=== PATIENT | male | born 1945 | race Caucasian/White ===

== ENCOUNTER 2025-05-23 23:41 | Inpatient (IN) | payer OTHER ==
[~2025-05-23] VITALS: Ht 172.7 cm; Wt 65.8 kg
[2025-05-23] MEDS ORDERED: ACETAMINOPHEN 650 MG/SUPP.RECT RC ONE (23:57)
[2025-05-24] VITALS (26 sets, daily range): BP systolic 102–137; BP diastolic 52–92; TEMP 98.2–98.6; O2SAT 91–100
[2025-05-24] MEDS ORDERED: IV NS 0.9% 1,000 ML BAG IV ONE
[2025-05-24 00:14] LABS: PLATELET COUNT (AUTO) 352 K/uL (150-450); RED BLOOD CELL COUNT(AUTO) 2.85 MIL/uL (4.5-6.0); RED CELL DISTRIBUTION WIDTH 17.5 % (11.5-15.0)
[2025-05-24 00:17] LABS: WHITE BLOOD COUNT (AUTO) 35.8 K/uL (4.3-11.0)
[2025-05-24] MEDS: ACETAMINOPHEN 650 MG/SUPP.RECT RC ONE (00:21)
[2025-05-24] MEDS: IV NS 0.9% 500 ML BAG IV ONE (00:21)
[2025-05-24 00:25] LABS: CALCIUM, SERUM 8.2 mg/dL (8.5-10.1); CREATININE 0.8 mg/dL (0.6-1.3); SODIUM SERUM 140 mmol/L (136-145); UREA NITROGEN, BLOOD 26 mg/dL (7-18)
[2025-05-24 00:27] LABS: INR 1.27 (0.91-1.10)
[2025-05-24 00:34] LABS: LACTIC ACID 2.8 mmol/L (0.4-2.0)
[2025-05-24 00:39] LABS: ASPARTATE AMINOTRANSFERASE 39 U/L (15-37); TOTAL PROTEIN, SERUM 7.0 g/dL (6.4-8.2)
[2025-05-24 00:44] LABS: APPEARANCE,URINE CLOUDY (CLEAR); BLOOD, URINE 2+ Ery/uL (NEGATIVE); LEUKOCYTE ESTERASE ,URINE 3+ (NEGATIVE); NITRITE, URINE POSITIVE (NEGATIVE); UGLUCOSE NEGATIVE (NEGATIVE)
[2025-05-24] MEDS ORDERED: CEFTRIAXONE 1GM BAG (ER ONLY) 50 ML IV ONE (01:00)
[2025-05-24] MEDS: CEFTRIAXONE 1GM BAG (ER ONLY) 1 GM/50 ML PIGGYBACK IV ONE (01:01)
[2025-05-24 01:05] LABS: ADD URINE CULTURE YES; SQUAMOUS EPITHELIAL CELL,UR None Seen /HPF (None Seen)
[2025-05-24 01:09] LABS: ABG BASE EXCESS 1.5 mmol/L (-2.0-3.0); ABG OXYGEN SATURATION 99.3 % (94.0-98.0); ABG PCO2 36.2 mmHg (35.0-48.0); ABG PH 7.461 (7.350-7.450); ABG PO2 286.4 mmHg (83.0-108.0); ABG TOTAL HEMOGLOBIN 9.3 G/dL (13.5-17.5); SET RATE, BG 18.0; SITE, ABG RIGHT RADIAL
[2025-05-24] MEDS: AZITHROMYCIN 500 MG in IV D5W 250 ML IV SCH (01:30)
[2025-05-24] MEDS ORDERED: AZITHROMYCIN 500 MG VIAL ONE (01:47)
[2025-05-24] MEDS ORDERED: ONDANSETRON HCL/PF 4 MG/2 ML VIAL IVP PRN (02:00)
[2025-05-24] MEDS ORDERED: MAG HYDROX/AL HYDROX/SIMETH 30 ML UDC PO PRN (02:00)
[2025-05-24] MEDS ORDERED: DOSING PER PHARMACY-VANCOMYCIN IV XX PRN (02:00)
[2025-05-24] MEDS ORDERED: ACETAMINOPHEN 325 MG TABLET PO PRN (02:00)
[2025-05-24] MEDS ORDERED: Z GUARD REMEDY 4 OZ OINT TP PRN (02:00)
[2025-05-24] MEDS ORDERED: MAGNESIUM HYDROXIDE 30 ML UDC PO PRN (02:00)
[2025-05-24] MEDS ORDERED: CEFEPIME 1 GM VIAL ONE (03:23)
[2025-05-24 03:45] LABS: BAND % (MANUAL) 1 % (0.0-5.0); LYMPHOCYTES % (MANUAL) 2 % (16-48); MONOCYTES % (MANUAL) 6 % (0-11.0); NEUTROPHILS % (MANUAL) 91 (42-76); PLATELET ESTIMATE ADEQUATE
[2025-05-24] MEDS: CEFEPIME 1 GM in IV D5W 50 ML IV SCH (04:04)
[2025-05-24] MEDS: IV NS 0.9% 1,000 ML IV PRN (04:05)
[2025-05-24] MEDS: VANCOMYCIN 1 GM /D5W 250 ML PB IV ONE (05:16)
[2025-05-24 06:06] LABS: ABG BASE EXCESS 1.1 mmol/L (-2.0-3.0); ABG OXYGEN SATURATION 98.6 % (94.0-98.0); ABG PCO2 40.8 mmHg (35.0-48.0); ABG PH 7.417 (7.350-7.450); ABG PO2 141.3 mmHg (83.0-108.0); ABG TOTAL HEMOGLOBIN 8.8 G/dL (13.5-17.5); SET RATE, BG 18.0; SITE, ABG RIGHT RADIAL
[2025-05-24] MEDS: VANCOMYCIN 1.5 GM in IV D5W 500 ML IV ONE (06:52)
[2025-05-24] MEDS: PANTOPRAZOLE 40 MG VIAL IV SCH (08:17)
[2025-05-24] MEDS: dexaMETHasone SOD PHOSPHATE 10 MG/ML VIAL IV SCH (08:18)
[2025-05-24] MEDS: ENOXAPARIN SODIUM 40 MG/0.4 ML DISP.SYRIN SQ SCH (08:18)
[2025-05-24] MEDS: DAKINS QUARTER STRENGTH (0.125%) 480 ML BOTTLE TOP SCH (08:19)
[2025-05-24] MEDS: CEFEPIME 2 GM in IV D5W 100 ML IV SCH (11:34)
[2025-05-24] MEDS: VANCOMYCIN 1 GM in IV D5W 250ml IV SCH (15:49)
[2025-05-25] VITALS (25 sets, daily range): BP systolic 118–156; BP diastolic 40–86; TEMP 97–98.1; O2SAT 87–100
[2025-05-25] MEDS: JEVITY 1.2 CAL 1,000 ML BOTTLE GT PRN ×2 (04:51→10:57)
[2025-05-25 05:09] LABS: ASPARTATE AMINOTRANSFERASE 28.0 U/L (15-37); CALCIUM, SERUM 9.2 mg/dL (8.5-10.1); CREATININE 0.5 mg/dL (0.6-1.3); PHOSPHORUS 2.7 mg/dL (2.5-4.9); SODIUM SERUM 140.0 mmol/L (136-145); TOTAL PROTEIN, SERUM 7.2 g/dL (6.4-8.2); UREA NITROGEN, BLOOD 22.0 mg/dL (7-18)
[2025-05-25 05:11] LABS: PLATELET COUNT (AUTO) 349 K/uL (150-450); RED BLOOD CELL COUNT(AUTO) 2.83 MIL/uL (4.5-6.0); RED CELL DISTRIBUTION WIDTH 17.2 % (11.5-15.0)
[2025-05-25 05:18] LABS: WHITE BLOOD COUNT (AUTO) 40.8 K/uL (4.3-11.0)
[2025-05-25 05:51] LABS: LYMPHOCYTES % (MANUAL) 3 % (16-48); MONOCYTES % (MANUAL) 3 % (0-11.0); NEUTROPHILS % (MANUAL) 94 (42-76); PLATELET ESTIMATE ADEQUATE
[2025-05-25] MEDS: dexaMETHasone SOD PHOSPHATE 10 MG/ML VIAL IV SCH (08:41)
[2025-05-26] VITALS (24 sets, daily range): BP systolic 133–166; BP diastolic 72–90; TEMP 97.7–98.7; O2SAT 99–100
[2025-05-26 05:04] LABS: PLATELET COUNT (AUTO) 338 K/uL (150-450); RED BLOOD CELL COUNT(AUTO) 2.83 MIL/uL (4.5-6.0); RED CELL DISTRIBUTION WIDTH 17.6 % (11.5-15.0); WHITE BLOOD COUNT (AUTO) 27.5 K/uL (4.3-11.0)
[2025-05-26 05:21] LABS: CALCIUM, SERUM 9.0 mg/dL (8.5-10.1); CREATININE 0.6 mg/dL (0.6-1.3); SODIUM SERUM 142.0 mmol/L (136-145); UREA NITROGEN, BLOOD 23.0 mg/dL (7-18)
[2025-05-26] MEDS: PANTOPRAZOLE 40 MG/PACK PACK GT SCH (09:08)
[2025-05-26] MEDS: VANCOMYCIN HCL 1.25 GM in IV D5W 250 ML IV SCH (16:03)
[2025-05-27] VITALS (23 sets, daily range): BP systolic 137–170; BP diastolic 66–91; TEMP 97.9–98.3; O2SAT 93–100
[2025-05-27 05:49] LABS: CALCIUM, SERUM 8.6 mg/dL (8.5-10.1); CREATININE 0.5 mg/dL (0.6-1.3); SODIUM SERUM 141.0 mmol/L (136-145); UREA NITROGEN, BLOOD 18.0 mg/dL (7-18)
[2025-05-27 09:06] LABS: ABG BASE EXCESS 4.5 mmol/L (-2.0-3.0); ABG OXYGEN SATURATION 95.9 % (94.0-98.0); ABG PCO2 39.9 mmHg (35.0-48.0); ABG PH 7.472 (7.350-7.450); ABG PO2 83.0 mmHg (83.0-108.0); ABG TOTAL HEMOGLOBIN 9.0 G/dL (13.5-17.5); FRACTIONATED INSPIRED OXYGEN 80.0 %; SET RATE, BG 18.0; SITE, ABG RIGHT RADIAL
[2025-05-27 09:39] LABS: PLATELET COUNT (AUTO) 319 K/uL (150-450); RED BLOOD CELL COUNT(AUTO) 2.76 MIL/uL (4.5-6.0); RED CELL DISTRIBUTION WIDTH 17.4 % (11.5-15.0); WHITE BLOOD COUNT (AUTO) 22.9 K/uL (4.3-11.0)
[2025-05-28] VITALS (21 sets, daily range): BP systolic 128–162; BP diastolic 66–89; TEMP 98.2–98.9; O2SAT 90–100
[2025-05-28 05:29] LABS: PLATELET COUNT (AUTO) 303 K/uL (150-450); RED BLOOD CELL COUNT(AUTO) 2.84 MIL/uL (4.5-6.0); RED CELL DISTRIBUTION WIDTH 16.8 % (11.5-15.0); WHITE BLOOD COUNT (AUTO) 24.0 K/uL (4.3-11.0)
[2025-05-28 05:37] LABS: CALCIUM, SERUM 8.6 mg/dL (8.5-10.1); CREATININE 0.5 mg/dL (0.6-1.3); PHOSPHORUS 2.9 mg/dL (2.5-4.9); SODIUM SERUM 136.0 mmol/L (136-145); UREA NITROGEN, BLOOD 14.0 mg/dL (7-18)
[2025-05-28 10:15] LABS: LYMPHOCYTES % (MANUAL) 9 % (16-48); MONOCYTES % (MANUAL) 5 % (0-11.0); NEUTROPHILS % (MANUAL) 86 (42-76); PLATELET ESTIMATE ADEQUATE
[2025-05-29] VITALS: BP 135/65; TEMP 97.7; O2SAT 94
[2025-05-29 04:00] VITALS: BP 160/78; TEMP 97.7; O2SAT 96
[2025-05-29 08:00] VITALS: BP 146/77; TEMP 97.1; O2SAT 96
[2025-05-29 08:18] LABS: PLATELET COUNT (AUTO) 376 K/uL (150-450); RED BLOOD CELL COUNT(AUTO) 3.12 MIL/uL (4.5-6.0); RED CELL DISTRIBUTION WIDTH 17.0 % (11.5-15.0); WHITE BLOOD COUNT (AUTO) 22.8 K/uL (4.3-11.0)
[2025-05-29 08:26] LABS: CALCIUM, SERUM 8.6 mg/dL (8.5-10.1); CREATININE 0.4 mg/dL (0.6-1.3); SODIUM SERUM 140.0 mmol/L (136-145); UREA NITROGEN, BLOOD 16.0 mg/dL (7-18)
[2025-05-29] MEDS: PROSOURCE / PROSTAT (PYXIS) 30 ML UDC GT SCH (10:16)
[2025-05-29 10:24] LABS: LYMPHOCYTES % (MANUAL) 11 % (16-48); MONOCYTES % (MANUAL) 3 % (0-11.0); NEUTROPHILS % (MANUAL) 86 (42-76); PLATELET ESTIMATE ADEQUATE
[2025-05-29 12:00] VITALS: BP 155/79; TEMP 97.6; O2SAT 96
[2025-05-29] MEDS: VANCOMYCIN 1 GM in IV D5W 250 ML IV SCH (15:36)
[2025-05-29 16:00] VITALS: BP 166/81; TEMP 97.1; O2SAT 99
[2025-05-29] MEDS: ACETAMINOPHEN 650 MG/20.3 ML UDC PO PRN (16:25)
[2025-05-29 20:00] VITALS: BP 145/75; TEMP 97.5; O2SAT 90
[2025-05-30] VITALS: BP 140/116; TEMP 97.7; O2SAT 95
[2025-05-30 04:00] VITALS: BP 134/75; TEMP 97.9; O2SAT 95
[2025-05-30 07:27] LABS: PLATELET COUNT (AUTO) 402 K/uL (150-450); RED BLOOD CELL COUNT(AUTO) 3.26 MIL/uL (4.5-6.0); RED CELL DISTRIBUTION WIDTH 16.8 % (11.5-15.0)
[2025-05-30 07:31] LABS: CALCIUM, SERUM 8.9 mg/dL (8.5-10.1); CREATININE 0.5 mg/dL (0.6-1.3); SODIUM SERUM 136.0 mmol/L (136-145); UREA NITROGEN, BLOOD 16.0 mg/dL (7-18)
[2025-05-30 08:00] VITALS: BP 128/60; TEMP 97.9; O2SAT 100
[2025-05-30 08:04] LABS: WHITE BLOOD COUNT (AUTO) 31.0 K/uL (4.3-11.0)
[2025-05-30 08:43] LABS: LYMPHOCYTES % (MANUAL) 7 % (16-48); MONOCYTES % (MANUAL) 3 % (0-11.0); MYELOCYTES % 2 % (0-0); NEUTROPHILS % (MANUAL) 88 (42-76); PLATELET ESTIMATE ADEQUATE
[2025-05-30 16:00] VITALS: BP 136/83; TEMP 98; O2SAT 95
[2025-05-30 20:00] VITALS: BP 148/69; TEMP 98.2; O2SAT 99
[2025-05-31 01:30] VITALS: O2SAT 96
[2025-05-31 04:00] VITALS: BP 129/71; TEMP 98.5; O2SAT 95
[2025-05-31 08:00] VITALS: BP 106/54; TEMP 98.2; O2SAT 95
[2025-05-31 09:12] LABS: PLATELET COUNT (AUTO) 401 K/uL (150-450); RED BLOOD CELL COUNT(AUTO) 3.17 MIL/uL (4.5-6.0); RED CELL DISTRIBUTION WIDTH 17.4 % (11.5-15.0); WHITE BLOOD COUNT (AUTO) 25.3 K/uL (4.3-11.0)
[2025-05-31] MEDS: dexaMETHasone SOD PHOSPHATE 10 MG/ML VIAL IV SCH (09:22)
[2025-05-31 09:23] LABS: CALCIUM, SERUM 8.6 mg/dL (8.5-10.1); CREATININE 0.5 mg/dL (0.6-1.3); SODIUM SERUM 137.0 mmol/L (136-145); UREA NITROGEN, BLOOD 18.0 mg/dL (7-18)
[2025-05-31 16:00] VITALS: BP 100/50; TEMP 98.4; O2SAT 93
[2025-05-31 20:00] VITALS: BP 104/46; TEMP 97.8; O2SAT 93
[2025-05-31 23:20] VITALS: O2SAT 94
[2025-06-01 01:58] VITALS: O2SAT 96
[2025-06-01 04:00] VITALS: BP 110/60; TEMP 97.9; O2SAT 95
[2025-06-01 07:58] LABS: PLATELET COUNT (AUTO) 158 K/uL (150-450); RED BLOOD CELL COUNT(AUTO) 4.80 MIL/uL (4.5-6.0); RED CELL DISTRIBUTION WIDTH 16.1 % (11.5-15.0); WHITE BLOOD COUNT (AUTO) 8.4 K/uL (4.3-11.0)
[2025-06-01 08:00] VITALS: BP 162/82; TEMP 98.1; O2SAT 95
[2025-06-01 08:06] LABS: CALCIUM, SERUM 9.0 mg/dL (8.5-10.1); CREATININE 0.8 mg/dL (0.6-1.3); SODIUM SERUM 139.0 mmol/L (136-145); UREA NITROGEN, BLOOD 17.0 mg/dL (7-18)
[2025-06-01 16:00] VITALS: BP 131/73; TEMP 97.9; O2SAT 95
[2025-06-01 20:00] VITALS: BP 115/74; TEMP 97.8; O2SAT 93
[2025-06-02] VITALS (10 sets, daily range): BP systolic 88–125; BP diastolic 56–82; TEMP 97.6–101.5; O2SAT 70–100
[2025-06-02 08:36] LABS: CALCIUM, SERUM 8.8 mg/dL (8.5-10.1); CREATININE 0.7 mg/dL (0.6-1.3); SODIUM SERUM 135.0 mmol/L (136-145); UREA NITROGEN, BLOOD 24.0 mg/dL (7-18)
[2025-06-02 08:58] LABS: PLATELET COUNT (AUTO) 430 K/uL (150-450); RED BLOOD CELL COUNT(AUTO) 3.51 MIL/uL (4.5-6.0); RED CELL DISTRIBUTION WIDTH 18.6 % (11.5-15.0)
[2025-06-02 09:42] LABS: WHITE BLOOD COUNT (AUTO) 37.9 K/uL (4.3-11.0)
[2025-06-02 10:37] LABS: ABG BASE EXCESS 4.1 mmol/L (-2.0-3.0); ABG OXYGEN SATURATION 88.3 % (94.0-98.0); ABG PCO2 37.0 mmHg (35.0-48.0); ABG PH 7.490 (7.350-7.450); ABG PO2 55.6 mmHg (83.0-108.0); ABG TOTAL HEMOGLOBIN 10.6 G/dL (13.5-17.5); FLOW, BLOOD GAS 15.00 L/min (0.00-30.00); FRACTIONATED INSPIRED OXYGEN 100.0 %
[2025-06-02 11:22] LABS: LYMPHOCYTES % (MANUAL) 1 % (16-48); MONOCYTES % (MANUAL) 3 % (0-11.0); MYELOCYTES % 5 % (0-0); NEUTROPHILS % (MANUAL) 91 (42-76); PLATELET ESTIMATE ADEQUATE
[2025-06-02] MEDS ORDERED: MEROPENEM 500 MG in IV NS 0.9% 50 ML IV SCH (13:00)
[2025-06-02] MEDS ORDERED: DOSING PER PHARMACY-VANCOMYCIN IV XX PRN (19:00)
[2025-06-02] MEDS: VANCOMYCIN 1 GM in IV D5W 250ml IV ONE (20:18)
[2025-06-02] MEDS: MEROPENEM 500 MG in IV NS 0.9% 50 ML IV SCH (21:26)
[2025-06-03] VITALS (11 sets, daily range): BP systolic 112–146; BP diastolic 60–80; TEMP 97.5–99; O2SAT 98–100
[2025-06-03] MEDS: VANCOMYCIN 1 GM in IV D5W 250ml IV SCH (08:59)
[2025-06-03 10:06] LABS: PLATELET COUNT (AUTO) 390 K/uL (150-450); RED BLOOD CELL COUNT(AUTO) 3.33 MIL/uL (4.5-6.0); RED CELL DISTRIBUTION WIDTH 17.8 % (11.5-15.0)
[2025-06-03 10:08] LABS: CALCIUM, SERUM 9.0 mg/dL (8.5-10.1); CREATININE 0.5 mg/dL (0.6-1.3); SODIUM SERUM 135.0 mmol/L (136-145); UREA NITROGEN, BLOOD 28.0 mg/dL (7-18)
[2025-06-03 10:24] LABS: WHITE BLOOD COUNT (AUTO) 32.5 K/uL (4.3-11.0)
[2025-06-03 10:47] LABS: LYMPHOCYTES % (MANUAL) 4 % (16-48); MONOCYTES % (MANUAL) 5 % (0-11.0); NEUTROPHILS % (MANUAL) 91 (42-76); PLATELET ESTIMATE ADEQUATE
[2025-06-03] MEDS: MEROPENEM 500 MG in IV NS 0.9% 50 ML IV SCH (12:00)
[2025-06-03] MEDS ORDERED: VANCOMYCIN 1 GM in IV D5W 250ml IV SCH (23:00)
[2025-06-04] VITALS (12 sets, daily range): BP systolic 113–153; BP diastolic 59–96; TEMP 97.2–97.8; O2SAT 97–100
[2025-06-04 07:48] LABS: PLATELET COUNT (AUTO) 361 K/uL (150-450); RED BLOOD CELL COUNT(AUTO) 3.36 MIL/uL (4.5-6.0); RED CELL DISTRIBUTION WIDTH 17.8 % (11.5-15.0); WHITE BLOOD COUNT (AUTO) 21.7 K/uL (4.3-11.0)
[2025-06-04 08:01] LABS: CALCIUM, SERUM 9.3 mg/dL (8.5-10.1); CREATININE 0.6 mg/dL (0.6-1.3); SODIUM SERUM 137.0 mmol/L (136-145); UREA NITROGEN, BLOOD 22.0 mg/dL (7-18)
[2025-06-04] MEDS: SODIUM POLYSTYRENE SULFONATE 15 G/60 ML BOTTLE PO ONE (11:22)
[2025-06-05] VITALS (8 sets, daily range): BP systolic 102–153; BP diastolic 58–90; TEMP 97.5–98.1; O2SAT 100
[2025-06-05 07:42] LABS: PLATELET COUNT (AUTO) 361 K/uL (150-450); RED BLOOD CELL COUNT(AUTO) 3.38 MIL/uL (4.5-6.0); RED CELL DISTRIBUTION WIDTH 17.3 % (11.5-15.0); WHITE BLOOD COUNT (AUTO) 22.7 K/uL (4.3-11.0)
[2025-06-05 07:51] LABS: CALCIUM, SERUM 9.1 mg/dL (8.5-10.1); CREATININE 0.5 mg/dL (0.6-1.3); SODIUM SERUM 138.0 mmol/L (136-145); UREA NITROGEN, BLOOD 20.0 mg/dL (7-18)
[2025-06-06] VITALS (7 sets, daily range): BP systolic 90–117; BP diastolic 52–60; TEMP 97.5–99.2; O2SAT 95–100
[2025-06-06 07:27] LABS: PLATELET COUNT (AUTO) 363 K/uL (150-450); RED BLOOD CELL COUNT(AUTO) 3.39 MIL/uL (4.5-6.0); RED CELL DISTRIBUTION WIDTH 17.6 % (11.5-15.0); WHITE BLOOD COUNT (AUTO) 20.7 K/uL (4.3-11.0)
[2025-06-06 08:02] LABS: CALCIUM, SERUM 9.1 mg/dL (8.5-10.1); CREATININE 0.6 mg/dL (0.6-1.3); SODIUM SERUM 138.0 mmol/L (136-145); UREA NITROGEN, BLOOD 20.0 mg/dL (7-18)
[2025-06-06 09:47] LABS: LYMPHOCYTES % (MANUAL) 4 % (16-48); METAMYELOCYTES % 2 % (0-0); MONOCYTES % (MANUAL) 4 % (0-11.0); NEUTROPHILS % (MANUAL) 90 (42-76); PLATELET ESTIMATE ADEQUATE
[2025-06-06 10:38] LABS: ABG BASE EXCESS 6.7 mmol/L (-2.0-3.0); ABG OXYGEN SATURATION 96.1 % (94.0-98.0); ABG PCO2 41.1 mmHg (35.0-48.0); ABG PH 7.490 (7.350-7.450); ABG PO2 77.8 mmHg (83.0-108.0); ABG TOTAL HEMOGLOBIN 10.2 G/dL (13.5-17.5); FLOW, BLOOD GAS 9.00 L/min (0.00-30.00); FRACTIONATED INSPIRED OXYGEN 56.0 %; SITE, ABG RIGHT RADIAL
[2025-06-06 15:25] LABS: PHOSPHORUS 3.8 mg/dL (2.5-4.9)
[2025-06-07] VITALS (10 sets, daily range): BP systolic 101–114; BP diastolic 55–64; TEMP 97.1–99.8; O2SAT 92–100
[2025-06-07 07:58] LABS: PLATELET COUNT (AUTO) 330 K/uL (150-450); RED BLOOD CELL COUNT(AUTO) 3.23 MIL/uL (4.5-6.0); RED CELL DISTRIBUTION WIDTH 17.7 % (11.5-15.0); WHITE BLOOD COUNT (AUTO) 21.1 K/uL (4.3-11.0)
[2025-06-07 08:12] LABS: CREATININE 0.5 mg/dL (0.6-1.3); SODIUM SERUM 136.0 mmol/L (136-145); UREA NITROGEN, BLOOD 20.0 mg/dL (7-18)
[2025-06-07 08:41] LABS: CALCIUM, SERUM 8.8 mg/dL (8.5-10.1)
[2025-06-07 09:23] LABS: ABG BASE EXCESS 5.8 mmol/L (-2.0-3.0); ABG OXYGEN SATURATION 99.4 % (94.0-98.0); ABG PCO2 44.7 mmHg (35.0-48.0); ABG PH 7.451 (7.350-7.450); ABG PO2 205.9 mmHg (83.0-108.0); ABG TOTAL HEMOGLOBIN 10.2 G/dL (13.5-17.5); FLOW, BLOOD GAS 15.00 L/min (0.00-30.00); FRACTIONATED INSPIRED OXYGEN 100.0 %; SITE, ABG RIGHT RADIAL
[2025-06-07 09:43] LABS: PHOSPHORUS 3.0 mg/dL (2.5-4.9)
[2025-06-07 11:19] LABS: LYMPHOCYTES % (MANUAL) 2 % (16-48); MONOCYTES % (MANUAL) 5 % (0-11.0); MYELOCYTES % 1 % (0-0); NEUTROPHILS % (MANUAL) 92 (42-76); PLATELET ESTIMATE ADEQUATE
[2025-06-08] VITALS (11 sets, daily range): BP systolic 101–126; BP diastolic 55–64; TEMP 97.8–99.3; O2SAT 91–100
[2025-06-08 07:22] LABS: CALCIUM, SERUM 8.8 mg/dL (8.5-10.1); CREATININE 0.6 mg/dL (0.6-1.3); SODIUM SERUM 138.0 mmol/L (136-145); UREA NITROGEN, BLOOD 28.0 mg/dL (7-18)
[2025-06-08] MEDS ORDERED: DOSING PER PHARMACY-VANCOMYCIN IV XX PRN (15:30)
[2025-06-08] MEDS ORDERED: PIPERACILLIN /TAZOBACTAM 3.375 G in IV D5W 50 ML IV SCH (15:30)
[2025-06-08] MEDS: ZOSYN IVPB 3.375 G in IV D5W 50ml IV SCH (17:25)
[2025-06-08] MEDS: VANCOMYCIN 1 GM in IV D5W 250ml IV SCH (18:07)
[2025-06-09] VITALS: BP 105/55; TEMP 98.1; O2SAT 98
[2025-06-09 04:00] VITALS: BP 129/60; TEMP 98.1; O2SAT 100
[2025-06-09 07:31] LABS: CALCIUM, SERUM 8.9 mg/dL (8.5-10.1); CREATININE 0.5 mg/dL (0.6-1.3); SODIUM SERUM 137.0 mmol/L (136-145); UREA NITROGEN, BLOOD 22.0 mg/dL (7-18)
[2025-06-09 07:41] LABS: PLATELET COUNT (AUTO) 251 K/uL (150-450); RED BLOOD CELL COUNT(AUTO) 3.14 MIL/uL (4.5-6.0); RED CELL DISTRIBUTION WIDTH 18.3 % (11.5-15.0); WHITE BLOOD COUNT (AUTO) 15.7 K/uL (4.3-11.0)
[2025-06-09 08:00] VITALS: BP 105/74; TEMP 98.1; O2SAT 96
[2025-06-09 08:15] LABS: PHOSPHORUS 3.5 mg/dL (2.5-4.9)
[2025-06-09 12:00] VITALS: BP 122/69; TEMP 98.1; O2SAT 95
[2025-06-09 16:00] VITALS: BP 122/69; TEMP 98.3; O2SAT 95
[2025-06-09 20:00] VITALS: BP 126/66; TEMP 100; O2SAT 97
[2025-06-10] VITALS (7 sets, daily range): BP systolic 111–135; BP diastolic 54–85; TEMP 98.1–101.8; O2SAT 94–100
[2025-06-10 04:21] LABS: PLATELET COUNT (AUTO) 290 K/uL (150-450); RED BLOOD CELL COUNT(AUTO) 3.22 MIL/uL (4.5-6.0); RED CELL DISTRIBUTION WIDTH 17.2 % (11.5-15.0); WHITE BLOOD COUNT (AUTO) 23.4 K/uL (4.3-11.0)
[2025-06-10 04:30] LABS: CALCIUM, SERUM 8.8 mg/dL (8.5-10.1); CREATININE 0.7 mg/dL (0.6-1.3); SODIUM SERUM 138 mmol/L (136-145); UREA NITROGEN, BLOOD 22 mg/dL (7-18)
[2025-06-10 04:33] LABS: PHOSPHORUS 3.7 mg/dL (2.5-4.9)
[2025-06-10 11:43] LABS: LYMPHOCYTES % (MANUAL) 3 % (16-48); NEUTROPHILS % (MANUAL) 93 (42-76)
[2025-06-10 11:44] LABS: BASOPHILS % (MANUAL) 0 % (0.0-2.0); EOSINOPHILS % (MANUAL) 0 % (0-4); MONOCYTES % (MANUAL) 4 % (0-11.0); PLATELET ESTIMATE ADEQUATE
[2025-06-11] VITALS (10 sets, daily range): BP systolic 107–127; BP diastolic 55–66; TEMP 97–98.2; O2SAT 96–100
[2025-06-11 06:37] LABS: PLATELET COUNT (AUTO) 271 K/uL (150-450); RED BLOOD CELL COUNT(AUTO) 3.01 MIL/uL (4.5-6.0); RED CELL DISTRIBUTION WIDTH 16.7 % (11.5-15.0); WHITE BLOOD COUNT (AUTO) 18.8 K/uL (4.3-11.0)
[2025-06-11 07:07] LABS: PHOSPHORUS 4.4 mg/dL (2.5-4.9)
[2025-06-11 07:13] LABS: CALCIUM, SERUM 9.3 mg/dL (8.5-10.1); CREATININE 0.9 mg/dL (0.6-1.3); SODIUM SERUM 141.0 mmol/L (136-145); UREA NITROGEN, BLOOD 36.0 mg/dL (7-18)
[2025-06-11] MEDS: POTASSIUM CHLORIDE 20 MEQ POWDER PACKET NG SCH (10:08)
[2025-06-11] MEDS: ACETYLCYSTEINE 10% SOLN 400 MG/4 ML VIAL NEB SCH (17:14)
[2025-06-11] MEDS ORDERED: VANCOMYCIN HCL 1.25 GM in IV D5W 250 ML IV SCH (23:00)
[2025-06-12] VITALS (12 sets, daily range): BP systolic 116–140; BP diastolic 55–72; TEMP 97.5–98.8; O2SAT 95–100
[2025-06-12 08:23] LABS: CALCIUM, SERUM 9.4 mg/dL (8.5-10.1); CREATININE 0.8 mg/dL (0.6-1.3); SODIUM SERUM 146.0 mmol/L (136-145); UREA NITROGEN, BLOOD 34.0 mg/dL (7-18)
[2025-06-12 08:25] LABS: PLATELET COUNT (AUTO) 263 K/uL (150-450); RED BLOOD CELL COUNT(AUTO) 3.01 MIL/uL (4.5-6.0); RED CELL DISTRIBUTION WIDTH 17.3 % (11.5-15.0); WHITE BLOOD COUNT (AUTO) 14.5 K/uL (4.3-11.0)
[2025-06-12 08:42] LABS: PHOSPHORUS 3.5 mg/dL (2.5-4.9)
[2025-06-12] MEDS: ARGININE/GLUTAMINE/CALCIUM BMB 1 EACH POWD.PACK PEG SCH (14:23)
[2025-06-12] MEDS: PIPERACILLIN /TAZOBACTAM 3.375 G in IV D5W 100 ML IV SCH (14:23)
[2025-06-13] VITALS (15 sets, daily range): BP systolic 115–136; BP diastolic 61–74; TEMP 97.7–98.6; O2SAT 96–100
[2025-06-13 09:13] LABS: PLATELET COUNT (AUTO) 283 K/uL (150-450); RED BLOOD CELL COUNT(AUTO) 3.05 MIL/uL (4.5-6.0); RED CELL DISTRIBUTION WIDTH 17.2 % (11.5-15.0); WHITE BLOOD COUNT (AUTO) 11.2 K/uL (4.3-11.0)
[2025-06-13 09:45] LABS: PHOSPHORUS 3.7 mg/dL (2.5-4.9)
[2025-06-13 10:34] LABS: CALCIUM, SERUM 9.1 mg/dL (8.5-10.1); CREATININE 0.7 mg/dL (0.6-1.3); SODIUM SERUM 150.0 mmol/L (136-145); UREA NITROGEN, BLOOD 32.0 mg/dL (7-18)
[2025-06-13] MEDS: MEROPENEM 1 G in IV NS 0.9% 100 ML IV SCH (22:02)
[2025-06-13] MEDS: COLISTIMETHATE SODIUM 150 MG CBA VIAL NEB SCH (23:24)
[2025-06-14] VITALS (18 sets, daily range): BP systolic 119–132; BP diastolic 57–68; TEMP 97.3–98.4; O2SAT 85–100
[2025-06-14 07:27] LABS: CALCIUM, SERUM 9.5 mg/dL (8.5-10.1); CREATININE 0.7 mg/dL (0.6-1.3); SODIUM SERUM 154.0 mmol/L (136-145); UREA NITROGEN, BLOOD 41.0 mg/dL (7-18)
[2025-06-14] MEDS: FREE WATER VIA TUBE FEEDING GT SCH (12:14)
[2025-06-15] VITALS (12 sets, daily range): BP systolic 114–130; BP diastolic 58–76; TEMP 97.6–98.4; O2SAT 91–100
[2025-06-15 08:23] LABS: CALCIUM, SERUM 9.6 mg/dL (8.5-10.1); CREATININE 0.7 mg/dL (0.6-1.3); UREA NITROGEN, BLOOD 40.0 mg/dL (7-18)
[2025-06-15 08:36] LABS: SODIUM SERUM 156.0 mmol/L (136-145)
[2025-06-15] MEDS: POLYVINYL ALCOHOL 15 ML BOTTLE EACHEYE SCH (12:17)
[2025-06-16] VITALS (14 sets, daily range): BP systolic 114–132; BP diastolic 61–74; TEMP 97.5–100.2; O2SAT 97–100
[2025-06-16] MEDS: FREE WATER VIA TUBE FEEDING GT SCH (09:30)
[2025-06-17] VITALS (16 sets, daily range): BP systolic 98–124; BP diastolic 59–74; TEMP 97.5–99.1; O2SAT 98–100
[2025-06-17 08:59] LABS: CALCIUM, SERUM 9.9 mg/dL (8.5-10.1); CREATININE 0.9 mg/dL (0.6-1.3); UREA NITROGEN, BLOOD 55.0 mg/dL (7-18)
[2025-06-17 09:26] LABS: SODIUM SERUM 160.0 mmol/L (136-145)
[2025-06-17] MEDS: IV 1/2NS 1000 ML 1,000 ML IV SCH (10:15)
[2025-06-18] VITALS (13 sets, daily range): BP systolic 93–105; BP diastolic 56–77; TEMP 96.1–100.4; O2SAT 94–100
[2025-06-18 07:35] LABS: PLATELET COUNT (AUTO) 408 K/uL (150-450); RED BLOOD CELL COUNT(AUTO) 4.04 MIL/uL (4.5-6.0); RED CELL DISTRIBUTION WIDTH 19.0 % (11.5-15.0); WHITE BLOOD COUNT (AUTO) 20.3 K/uL (4.3-11.0)
[2025-06-18 07:48] LABS: CALCIUM, SERUM 9.5 mg/dL (8.5-10.1); CREATININE 1.2 mg/dL (0.6-1.3); UREA NITROGEN, BLOOD 72.0 mg/dL (7-18)
[2025-06-18 08:04] LABS: SODIUM SERUM 158.0 mmol/L (136-145)
[2025-06-18] MEDS: FREE WATER VIA TUBE FEEDING GT SCH (09:12)
[2025-06-18] MEDS: IV D5W 1,000 ML IV SCH (09:19)
[2025-06-19] VITALS (13 sets, daily range): BP systolic 101–113; BP diastolic 52–80; TEMP 97.5–98.6; O2SAT 95–100
[2025-06-19 07:24] LABS: PLATELET COUNT (AUTO) 313 K/uL (150-450); RED BLOOD CELL COUNT(AUTO) 3.35 MIL/uL (4.5-6.0); RED CELL DISTRIBUTION WIDTH 18.9 % (11.5-15.0); WHITE BLOOD COUNT (AUTO) 14.0 K/uL (4.3-11.0)
[2025-06-19 07:36] LABS: CALCIUM, SERUM 9.2 mg/dL (8.5-10.1); CREATININE 1.1 mg/dL (0.6-1.3); PHOSPHORUS 3.4 mg/dL (2.5-4.9); SODIUM SERUM 153.0 mmol/L (136-145); UREA NITROGEN, BLOOD 67.0 mg/dL (7-18)
[2025-06-19] MEDS: FIDAXOMICIN 200 MG TABLET PO SCH (21:30)
[2025-06-19] MEDS: METRONIDAZOLE 500 MG TABLET PO SCH (22:25)
[2025-06-20] VITALS (14 sets, daily range): BP systolic 101–124; BP diastolic 48–89; TEMP 98–98.4; O2SAT 91–100
[2025-06-20 11:55] LABS: PLATELET COUNT (AUTO) 319 K/uL (150-450); RED BLOOD CELL COUNT(AUTO) 2.95 MIL/uL (4.5-6.0); RED CELL DISTRIBUTION WIDTH 17.3 % (11.5-15.0); WHITE BLOOD COUNT (AUTO) 10.4 K/uL (4.3-11.0)
[2025-06-20 12:09] LABS: CALCIUM, SERUM 8.6 mg/dL (8.5-10.1); CREATININE 0.7 mg/dL (0.6-1.3); SODIUM SERUM 146.0 mmol/L (136-145); UREA NITROGEN, BLOOD 49.0 mg/dL (7-18)
[2025-06-20] MEDS: JEVITY 1.2 CAL 1,000 ML BOTTLE GT PRN (16:09)
[2025-06-21] VITALS (12 sets, daily range): BP systolic 102–118; BP diastolic 48–85; TEMP 97.7–98.5; O2SAT 93–100
[2025-06-21] MEDS: IV D5W 1,000 ML IV PRN (21:16)
[2025-06-22] VITALS (12 sets, daily range): BP systolic 98–122; BP diastolic 56–76; TEMP 97.5–98.8; O2SAT 94–100
[2025-06-22 14:39] LABS: PLATELET COUNT (AUTO) 336 K/uL (150-450); RED BLOOD CELL COUNT(AUTO) 3.12 MIL/uL (4.5-6.0); RED CELL DISTRIBUTION WIDTH 17.2 % (11.5-15.0); WHITE BLOOD COUNT (AUTO) 15.5 K/uL (4.3-11.0)
[2025-06-22 15:23] LABS: CALCIUM, SERUM 8.7 mg/dL (8.5-10.1); CREATININE 0.6 mg/dL (0.6-1.3); SODIUM SERUM 140.0 mmol/L (136-145); UREA NITROGEN, BLOOD 35.0 mg/dL (7-18)
[2025-06-23] VITALS (10 sets, daily range): BP systolic 100–119; BP diastolic 51–78; TEMP 98.5–99.3; O2SAT 94–100
[2025-06-24] VITALS (10 sets, daily range): BP systolic 113–137; BP diastolic 54–64; TEMP 97.9–98.5; O2SAT 94–100
[2025-06-25] VITALS (10 sets, daily range): BP systolic 113–115; BP diastolic 66–68; TEMP 97.8–98.4; O2SAT 95–100
[2025-06-25 08:06] LABS: PLATELET COUNT (AUTO) 352 K/uL (150-450); RED BLOOD CELL COUNT(AUTO) 3.07 MIL/uL (4.5-6.0); RED CELL DISTRIBUTION WIDTH 17.9 % (11.5-15.0); WHITE BLOOD COUNT (AUTO) 14.6 K/uL (4.3-11.0)
[2025-06-25 08:26] LABS: ASPARTATE AMINOTRANSFERASE 21.0 U/L (15-37); CALCIUM, SERUM 8.5 mg/dL (8.5-10.1); CREATININE 0.5 mg/dL (0.6-1.3); PHOSPHORUS 4.3 mg/dL (2.5-4.9); SODIUM SERUM 144.0 mmol/L (136-145); TOTAL PROTEIN, SERUM 6.5 g/dL (6.4-8.2); UREA NITROGEN, BLOOD 24.0 mg/dL (7-18)
[2025-06-25 13:59] LABS: EOSINOPHILS % (MANUAL) 2 % (0-4); LYMPHOCYTES % (MANUAL) 11 % (16-48); MONOCYTES % (MANUAL) 5 % (0-11.0); MYELOCYTES % 3 % (0-0); NEUTROPHILS % (MANUAL) 79 (42-76); PLATELET ESTIMATE ADEQUATE
[2025-06-26] VITALS (10 sets, daily range): BP systolic 110–136; BP diastolic 50–69; TEMP 97.9–98.2; O2SAT 96–100
[2025-06-26] MEDS: MEROPENEM 500MG/NS 50 ML PB IV ONE ×2 (09:39)
[2025-06-26] MEDS: VANCOMYCIN 1 GM /D5W 250 ML PB IV ONE (09:39)
[2025-06-26] MEDS: FREE WATER VIA TUBE FEEDING GT SCH (15:02)
== END 2025-06-26 19:32 | DRG 871 ==
LOC: ER 23:47 → ICU 05-24 01:18 → TELE1 05-28 18:30 → MEDSG1 05-30 08:32 → TELE1 06-02 11:41 → MEDSG1 06-23 15:21
PROVIDERS: ADMIT Nurse Practitioner Acute Care; ATTEND Nurse Practitioner Acute Care
PROC: 5A09557 Assistance with Respiratory Ventilation, Greater than 96 Consecutive Hours, Continuous Positive Airway Pressure (ICD-10-PCS; principal; 2025-05-24)
DX: A41.89 Other specified sepsis (principal); G92.8 Other toxic encephalopathy; L89.154 Pressure ulcer of sacral region, stage 4; J96.21 Acute and chronic respiratory failure with hypoxia; U07.1 COVID-19; J12.82 Pneumonia due to coronavirus disease 2019; J69.0 Pneumonitis due to inhalation of food and vomit; J15.61 Pneumonia due to Acinetobacter baumannii; J15.0 Pneumonia due to Klebsiella pneumoniae; T17.890A Other foreign object in other parts of respiratory tract causing asphyxiation, initial encounter; N39.0 Urinary tract infection, site not specified; R65.20 Severe sepsis without septic shock; A41.59 Other Gram-negative sepsis; B96.83 Acinetobacter baumannii as the cause of diseases classified elsewhere; B96.89 Other specified bacterial agents as the cause of diseases classified elsewhere; B96.1 Klebsiella pneumoniae [K. pneumoniae] as the cause of diseases classified elsewhere; F09 Unspecified mental disorder due to known physiological condition; G30.9 Alzheimer's disease, unspecified; D64.9 Anemia, unspecified; A04.72 Enterocolitis due to Clostridium difficile, not specified as recurrent; E87.20 Acidosis, unspecified; E87.0 Hyperosmolality and hypernatremia; J98.11 Atelectasis; Z16.12 Extended spectrum beta lactamase (ESBL) resistance; D68.59 Other primary thrombophilia; E86.0 Dehydration; W44.F9XA Other object of natural or organic material, entering into or through a natural orifice, initial encounter; Y92.9 Unspecified place or not applicable; R13.10 Dysphagia, unspecified; M89.8X9 Other specified disorders of bone, unspecified site; E87.5 Hyperkalemia; E88.09 Other disorders of plasma-protein metabolism, not elsewhere classified; F02.80 Dementia in other diseases classified elsewhere, unspecified severity, without behavioral disturbance, psychotic disturbance, mood disturbance, and anxiety; Y95 Nosocomial condition; T38.0X5A Adverse effect of glucocorticoids and synthetic analogues, initial encounter; Z74.01 Bed confinement status; Z93.1 Gastrostomy status; L98.9 Disorder of the skin and subcutaneous tissue, unspecified; Z74.09 Other reduced mobility; R79.89 Other specified abnormal findings of blood chemistry
CPT/HCPCS: 31720; 36415; 36600; 70450-TC; 71045-TC; 71250-TC; 80048-TC; 80053-TC; 80076-TC; 80202-TC; 81001; 82803-TC; 82962-TC; 83605-TC; 83735-TC; 83880; 84100-TC; 84132-TC; 84484-TC; 85025-TC; 85027-TC; 85378-TC; 85730-TC; 86140-TC; 87040-TC; 87070-TC; 87081-TC; 87086-TC; 87186-TC; 87205-TC; 94760-TC; 94762-TC; 94799-TC; 99082-TC; A4223; A6213; A6253; A6403; G0378; J0456; J0692; J0696; J0770; J1100; J1650; J2185; J2470; J2543; J2919; J3373; J3374; J3490; J7030; J7040; J7050; J7060; J7070; J7120